=== PATIENT | male | born 1990 ===

== ENCOUNTER 2021-07-18 19:58 | Inpatient (IN) | payer MEDICAID, OTHER ==
[2021-07-18] MEDS ORDERED: MAGNESIUM HYDROXIDE 2,400 MG/10 ML CUP PO PRN (23:22)
[2021-07-18] MEDS ORDERED: LORazepam 1 MG TAB PO PRN ×3 (23:22→23:23)
[2021-07-18] MEDS ORDERED: HALOPERIDOL LACTATE 5 MG/ML 1 ML VIAL IM PRN (23:22)
[2021-07-18] MEDS ORDERED: ACETAMINOPHEN TAB 325 MG TAB PO PRN (23:22)
[2021-07-18] MEDS ORDERED: MAG HYDROX/AL HYDROX/SIMETH 30 ML CUP PO PRN (23:22)
[2021-07-18] MEDS ORDERED: haloperidoL 5 MG TAB PO PRN (23:23)
[2021-07-18] MEDS ORDERED: LORazepam 2 MG/ML INJ IM PRN (23:23)
[2021-07-19] MEDS: CEPHALEXIN 500 MG CAP PO SCH ×4 (08:53→21:11)
[2021-07-19] MEDS: NICOTINE 14MG/24HR PATCH TRANSDERM SCH (08:53)
[2021-07-19 10:48] LABS: Chol/HDL Ratio 9.66 Ratio; LDL Cholesterol,Calculated 162.8 mg/dL (0.0-131.0)
--- NOTE | 2021-07-19 13:32 | P.HP ---
Psychiatric H&P - . H&P Date: 07/19/21 History & Physical: IDENTIFYING DATA: He is a 30-year-old single male transferred from [facility] under involuntary status. HISTORY OF PRESENT ILLNESS: He presented to [facility] on 07/11/2021 after he cut his left wrist with a knife. He was intoxicated with blonde alcohol level 0.266. The laceration on his wrist required sutures but the cut did not damage underlying structures. He was uncooperative with the interview. When I asked him the circumstances that led to cutting he replied "I made a bad decision." He perseverated on being discharged and alleging that he has been away from work for over a week and may have lost his job; "what do I have to do to get out of this place." In response to questions about the circumstances that led to the cutting of his wrist he replied that he does not know or could not remember. In response to specific questions about mood, anxiety or thinking he replied that he "does not know." The medical records from [facility] provided little more information because he was similarly uncooperative with their social work assessment. PAST PSYCHIATRIC HISTORY: He denied prior psychiatric hospitalizations. He met with a psychiatrist "a couple times several years ago" but did not benefit from the experience. He did not give a clear answer to questions about other mental health services. PAST MEDICAL HISTORY: He denied a history of major medical problems. ALLERGIES: NO KNOWN DRUG ALLERGIES SUBSTANCE USE HISTORY: He was vague about his substance use history. He alleged that he drinks "every couple days" but does not perceive his alcohol use as a problem. He denied any friends or family complained to him about his alcohol use. According to record he drinks 1/2-3/4 of a fifth of liquor 3-5 days per week. Appendectomy denied participation in a subsidized abuse treatment program FAMILY PSYCHIATRIC/SUBSTANCE USE HISTORY: "I don't know." LEGAL HISTORY: He denied a history of legal problems. SOCIAL HISTORY: He was not forthcoming about his social history except that he lives alone in an apartment and works as a cook at a local restaurant. According to the social work assessment he has an estranged relationship with his mother. His father is . He is an only child. He graduated from high school. He is single and has no children. MENTAL STATUS EXAM: Appendectomy presented as a tall casually groomed 30-year-old male with male pattern balding. He had a splint with bandages on his left wrist. He made eye contact and appeared to attend to the interview. He had no distinguishing features or prominent physical abnormalities. He had an angry facial expression. He was alert and oriented to person, place and time. He showed no abnormality of psychomotor activity. His speech was not spontaneous but it was consistent with his mood. His affect was irritable and impatient. He would not answer questions about suicidal ideation or wishes. Similarly he would not answer questions about homicidal ideation, feelings of hopelessness, helplessness or worthlessness. He did not express ideas reference, paranoid ideation or delusions. His thinking was concrete but his associations were coherent, logical and goal directed. He did not appear to be responding to internal stimuli. Global impression of intellect is average. He has limited awareness of his illness or need for treatment. STRENGTHS: Stable housing, stable employment, good physical health WEAKNESSES: Alcohol use, apparently limited social support IMPRESSION: He is a 30-year-old single male transferred from [facility] under involuntary status. He presented to the hospital with a knife laceration to his left wrist that was presumably from a suicide attempt while he was intoxicated. He was uncooperative, surly and inpatient throughout this assessment. He was not forthcoming about his personal life and volunteers little information. PRINCIPLE DIAGNOSIS: Suicide attempt by laceration of the wrist, alcohol use disorder unspecified, rule out alcohol induced mood disorder, rule out major depressive disorder RECOMMENDATION: Admitted to the psychiatric. Completed the second clinical certificate and submit the Petition and supporting documents to probate Court for involuntary hospitalization. Safety precautions. Consult medicine for initial physical exam and medical history. viscose cellar worker completed initial psychosocial assessment according to discharge and aftercare. CIWA with Ativan for alcohol withdrawal. Haldol 5 mg by mouth and/or IM for agitation or aggression. Encourage participation in therapeutic groups and activities. Evaluate clinical status response to treatment daily basis. Allergies Allergy/AdvReac Type Severity Reaction Status Date / Time No Known Allergies Allergy Verified 07/18/21 23:21 Vital Signs Temp 97.1 F L 07/19/21 03:51 Pulse 81 07/19/21 03:51 Resp 20 07/19/21 03:51 BP 158/96 07/19/21 03:51 Pulse Ox FiO2 Intake & Output 07/18/21 07/19/21 07/19/21 18:59 06:59 18:59 Weight 125.191 kg Laboratory Last Values Estimated Ave Glu mg/dL 102 07/19/21 07:09 Hemoglobin A1c 5.2 % (0.0-6.0) 07/19/21 07:09 Triglycerides 217.00 mg/dL (0.00-149.00) H 07/19/21 07:09 Cholesterol 230.00 mg/dL (0.00-200.00) H 07/19/21 07:09 LDL Cholesterol, Calc 162.8 mg/dL (0.0-131.0) H 07/19/21 07:09 VLDL Cholesterol, Calc 43.40 mg/dL (5.00-40.00) H 07/19/21 07:09 HDL Cholesterol 23.80 mg/dL (40.00-60.00) L 07/19/21 07:09 Cholesterol/HDL Ratio 9.66 Ratio 07/19/21 07:09 TSH 1.830 mIU/L (0.465-4.680) 07/19/21 07:09 07/19/21 11:40 07/19/21 13:22
--- NOTE | 2021-07-20 01:45 | P.CONS ---
History of Present Illness - Reason for Consult Consult date: 07/19/21 - History of Present Illness Patient is a 30-year-old male with no known PMH who was transferred to [place] psychiatry unit for Felicia Lerma where he had been admitted for self- harm. The patient reports that he cut his left forearm and wrist for no specific reason. The patient refused to elaborate in any social situations that may have caused him to do this. He denied any active complaints at the time of interview. Denied extremity chest discomfort, shortness of breath, fever, chills, cough, nausea, vomiting, abdominal pain, diarrhea. Reports smoking 1 pack of cigarettes daily. Denied reports social alcohol use 1 to 2 times a week, 3-4 drinks each time. Denied substance use. Review of systems: Pertinent positives and negatives as discussed in HPI, a complete review of systems was performed and all other systems are negative. Physical examination: General: non toxic, no distress, appears at stated age, obese Derm: Left forearm large laceration from wrist to mid forearm with sutures intact, clean and dry, no unusual ecchymoses, warm, dry Head: atraumatic, normocephalic, symmetric Eyes: EOMI, no lid lag, anicteric sclera, pupils equal round reactive to light ENT: Nose and ears atraumatic, no thrush, no pharyngeal erythema Neck: No thyromegaly, no cervical lymphadenopathy, trachea midline, supple Mouth: no lip lesion, mucus membranes moist Cardiovascular: S1S2 reg, no murmur, positive posterior tibial pulse bilateral, no edema, capillary refill less than 2 seconds Lungs: CTA bilateral, no rhonchi, no rales , no accessory muscle use Abdominal: soft, nontender to palpation, no guarding, no appreciable organomegaly, normal bowel sounds Ext: no gross muscle atrophy, muscle strength 5 out of 5 in all 4 extremities grossly, no contractures, Neuro: CN II-XI grossly intact, light touch intact all 4 extremities, finger to nose within normal limits, Psych: Alert, oriented, appropriate affect Assessment/plan Left forearm laceration -Wound care Tobacco abuse -Advised on importance of cessation Self-harm -As per psychiatry Thank you for allowing us to participate in the care of this patient. We will follow peripherally. Do not hesitate to contact us with questions. Someone can be reached from the [facility] [place] hospitalist group at all hours of the day at [phone]. Past Medical History Past Medical History: No Reported History History of Any Multi-Drug Resistant Organisms: None Reported Additional Past Surgical History / Comment(s): Left arm was repaired by ortho at [facility]. Past Anesthesia/Blood Transfusion Reactions: No Reported Reaction Past Psychological History: No Psychological Hx Reported Smoking Status: Current every day smoker Past Alcohol Use History: None Reported Past Drug Use History: None Reported - Past Family History Mother Family Medical History: Hyperlipidemia Medications and Allergies Allergies Allergy/AdvReac Type Severity Reaction Status Date / Time No Known Allergies Allergy Verified 07/18/21 23:21 Physical Exam Vitals: Vital Signs Temp Pulse Resp BP 07/19/21 03:51 97.1 F L 81 20 158/96 Results Labs: Abnormal Lab Results - Last 24 Hours (Table) 07/19/21 Range/Units 07:09 Triglycerides 217.00 H (0.00-149.00) mg/dL Cholesterol 230.00 H (0.00-200.00) mg/dL LDL Cholesterol, Calc 162.8 H (0.0-131.0) mg/dL VLDL Cholesterol, Calc 43.40 H (5.00-40.00) mg/dL HDL Cholesterol 23.80 L (40.00-60.00) mg/dL
[2021-07-20 06:58] VITALS: RESP 16
[2021-07-20] MEDS: NICOTINE 14MG/24HR PATCH TRANSDERM SCH (08:45)
[2021-07-20] MEDS: CEPHALEXIN 500 MG CAP PO SCH ×4 (08:45→23:31)
[2021-07-20] MEDS ORDERED: CALCIUM CARBONATE 500 MG CHEWABLE PO PRN (11:22)
--- NOTE | 2021-07-20 14:09 | P.PN ---
Progress Note - Text Progress Note Date: 07/20/21 Clinical Problems: Suicide attempt by laceration of the wrist, alcohol use disorder unspecified, rule out alcohol induced mood disorder, rule out major depressive disorder, rule out dysthymic disorder, rule out bipolar disorder Interim history: I reviewed the medical record, interviewed the patient and discussed the treatment and treatment plan with the treatment team. He was angry that I proceeded with involuntary hospitalization. Apparently since he cut his forearm he has been in a hospital for over a week. He complains that if he were to remain in the hospital much longer he would have difficulty meeting his financial obligations. I attempted to get a better understanding of the reasons he cut his forearm in a suicide attempt. He was more forthcoming than yesterday but still maintained that he could not explain his behavior. He would not talk about his thoughts or feelings prior to the incident. On the day of the incident he is spend much of the evening with a neighbor watching television. They ordered a pizza and he took half a piece of back to his apartment. He watched television "for a while" and then went to his bedroom. He sat on the edge the bed for an unspecified period time. He got up and walked in the kitchen picked up the automatic machine attendant knife and returned to the bedroom. He made approximately 18 cm laceration longitudinally along his left forearm. He then set down the knife, pinched the laceration with his fingers to stem the bleeding and called the police. He presented the incident as a spontaneous and thoughtless action that he regrets. He stated that he was having a "bad day" but would not admit to feeling depressed, hopeless or helpless. He talked about having periods lasting 1-2 days where he gets depressed and isolates himself to his apartment. He estimates that these episodes occur at most once a month. He is had past episodes lasting for at least 1 week. He denied periods of elevated mood or sustained irritability suggestive of a major or hypomania. He denied experiencing symptoms suggestive psychosis such as hallucinations paranoia or confusion. Medical consult appreciated. Mental status exam: He presented as guarded tall 30-year-old male with male pattern baldness. He made eye contact and attended to the interview. He had an 18 cm laceration along his left forearm with closed with multiple sutures. The laceration was clean and dry. He had no physical abnormalities. He had a bright facial expression. He was alert and oriented to person, place and time. He showed no abnormality of psychomotor activity. His speech was spontaneous with normal rate, rhythm and volume. His affect was somewhat irri table but not intense and appropriate. He denied suicidal ideation or wishes. He denied homicidal ideation. He denied experiencing feelings of hopelessness, helplessness or worthlessness. He did not express obsessions, ruminations, ideas reference, paranoid ideation or delusions. His thinking was concrete but his associations were coherent, logical and goal directed. He denies hallucinations did not appear to be responding to internal stimuli. Assessment: He is more cooperative than on admission but is denying symptoms of depression and does not appear depressed, hopeless or helpless. The suicide attempt appears to been an impulsive action while he was intoxicated. I'm unable to identify clear symptom patterns consistent with a major depressive disorder. He has intermittent periods of depression and accompanied by signs and symptoms of elin or hypomania. Plan: Continue inpatient treatment. Safety precautions. Discharge after deferral hearing. Evaluate the need for an antidepressant. Encouraged continued participation in therapeutic groups and activities. Evaluate clinical status response to treatment daily basis.
[2021-07-21] MEDS: NICOTINE 14MG/24HR PATCH TRANSDERM SCH (08:43)
[2021-07-21] MEDS: CEPHALEXIN 500 MG CAP PO SCH ×3 (08:44→21:31)
[2021-07-21] MEDS ORDERED: CEPHALEXIN 500 MG CAP ONE (13:00)
--- NOTE | 2021-07-21 14:53 | P.PN ---
Progress Note - Text Progress Note Date: 07/21/21 Interval History: Patient was seen lying in his bed today and was agreeable to speak to policy writer typist. Patient claims that he is having some anxiety and depression however for the most part feels a bit better. He claims that his wound on his left forearm is healing better and was asking about the stitches. He states that he has been sleeping a bit better lately however has trouble regulating his sleep. He claims that he has been going to some groups. He was minimizing the alcohol abuse/intoxication and also the suicide attempt. He states that he was not trying to kill himself" don't know what happened". He states he has fair appetite. He was agreeable to start Zoloft today. At this time patient denies any suicidal or homical ideations, intent or plan. Patient denies any auditory, visual hallucinations and denies any paranoia or delusions. Patient denies any side effects from the medications and has been compliant with meds. Mental Status Exam: General Appearance: [Patient appears to be tall, overweight, stated age is alert, directable, and guarded at times.] Behavior: [Patient is calmly seated without any agitated behavior.] Guarded at times. Speech: Patient's speech is fluent and nonpressured. [place] Mood/Affect: Mood is depressed and anxious however is improving mildly, affect is congruent and constricted. Suicidality/Homicidality: Patient denies having any suicidal or homicidal ideation intent or plan. Perceptions: Patient denies any visual hallucinations [and denies any auditory hallucinations] Though content/process: [There is no evidence of any delusional thought content and thought process is linear and goal-directed.] If they get times. Memory and concentration: AOX3, grossly intact for the purposes of this session Judgment and insight: Poor, Improving mildly Assessment Depressive disorder unspecified, rule out adjustment disorder versus major depressive disorder Alcohol use disorder severe Nicotine dependence Plan: -Patient continues to meet criteria for inpatient psychiatric admission for symptom stabilization and safety. Patient has [not] signed [adult voluntary form and] [medication consent] and was placed in patient's chart. -Medications: Zoloft 50 mg daily for mood/anxiety. melatonin 6 mg qhs for insomnia -When necessary Ativan and Haldol for agitation/aggression. d/c ciwa as patients last drink was over 12 days ago. -NRT - [nicotine patch] -COLLEEN on board for discharge planning. Encouraged the patient to participate in milieu. Currently awaiting deferral with attorney at law and court date. patient claims he does not want to go to rehab. currently awaiting deferral and couirt date.
[2021-07-21] MEDS: SERTRALINE 50 MG TAB PO SCH (17:17)
[2021-07-22] MEDS: CEPHALEXIN 500 MG CAP PO SCH ×5 (07:51→21:31)
[2021-07-22] MEDS ORDERED: MELATONIN 3 MG TABLET PO SCH (09:00)
[2021-07-22] MEDS: SERTRALINE 50 MG TAB PO SCH (09:22)
[2021-07-22] MEDS: NICOTINE 14MG/24HR PATCH TRANSDERM SCH (09:22)
--- NOTE | 2021-07-22 09:28 | P.PN ---
Progress Note - Text Progress Note Date: 07/22/21 Interval History: Patient was seen lying in his bed today and was agreeable to speak to insurance writer. She claims that he is doing better today overall. He states that he took the medication yesterday and today and claims that he didn't feel little bit drowsy harbors feeling better today. He states that his appetite has been improving. He continues to be fairly concrete and minimizing his alcohol use and the situation. He continues to be fairly focused on discharge. We spoke about the court process and waiting for the city attorney. He continues to minimize the suicide attempt. He is agreeable to continue on with treatment. He states that he slept better last night. At this time patient denies any suicidal or homical ideations, intent or plan. Patient denies any auditory, visual hallucinations and denies any paranoia or delusions. Patient denies any side effects from the medications and has been compliant with meds. Mental Status Exam: General Appearance: Patient appears to be tall, overweight, stated age is alert, directable, and guarded at times. Behavior: Patient is calmly seated without any agitated behavior. More cooperative today. Superficial. Speech: Patient's speech is fluent and nonpressured. Mood/Affect: Mood is depressed and anxious however is improving mildly, affect is congruent and constricted. Suicidality/Homicidality: Patient denies having any suicidal or homicidal ideation intent or plan. Perceptions: Patient denies any visual hallucinations and denies any auditory hallucinations Though content/process: There is no evidence of any delusional thought content and thought process is linear and goal-directed. Memory and concentration: AOX3, grossly intact for the purposes of this session Judgment and insight: Poor/superficial, Improving mildly Assessment Depressive disorder unspecified, rule out adjustment disorder versus major depressive disorder Alcohol use disorder severe Nicotine dependence Plan: -Patient continues to meet criteria for inpatient psychiatric admission for symptom stabilization and safety. Patient has not signed adult voluntary form and medication consent and was placed in patient's chart. -Medications: Zoloft 50 mg daily for mood/anxiety. melatonin 6 mg qhs for insomnia -When necessary Ativan and Haldol for agitation/aggression. d/c ciwa as patients last drink was over 12 days ago. -NRT - nicotine patch -SW on board for discharge planning. Encouraged the patient to participate in milieu. deferral set for 07/26 with city attorney. patient claims he does not want to go to rehab. likely discharge after he signs deferral next week.
[2021-07-22] MEDS: MELATONIN 3 MG TABLET PO SCH (21:32)
[2021-07-23] MEDS: NICOTINE 14MG/24HR PATCH TRANSDERM SCH (08:54)
[2021-07-23] MEDS: SERTRALINE 50 MG TAB PO SCH (08:54)
[2021-07-23] MEDS: CEPHALEXIN 500 MG CAP PO SCH ×4 (08:54→21:33)
--- NOTE | 2021-07-23 16:27 | P.PN ---
Progress Note - Text Progress Note Date: 07/23/21 Interval history: Patient was in his room reading and was directable and agreeable to speak with writer technical publications. At this time patient denies any suicidal or homicidal ideations intent or plan. He denies depressed mood but appears irritable and dissatisfied. He is interested in discharge and hopes to discharge on Sunday. Denies any auditory or visual hallucinations. Patient denies any side effects from the medications and has been compliant with meds. Mental status exam: General Appearance: Patient appears to be stated age, has a paniagua. Behavior: No agitated behavior. Patient is calm and directable, cooperative. Speech: Patient's speech is fluent and nonpressured. Mood/Affect: Mood is improving mildly, affect is congruent and constricted. Suicidality/Homicidality: Patient denies having any suicidal or homicidal ideation intent or plan. Perceptions: Patient denies any auditory or visual hallucinations. Though content/process: There is no evidence of any delusional thought content and thought process is linear and goal-directed. Memory and concentration: Alert and oriented to person, place, time and situation. Grossly intact for the purposes of this session Judgment and insight: improving mildly Assessment/Plan: Continue with current diagnosis. Patient continues to meet criteria for inpatient psychiatric admission for symptom stabilization and safety. Patient will be maintained on current psychotropic medication regimen, except for increase Zoloft to 100 mg daily starting tomorrow morning for depression. Monitor for medication compliance and for any psychotropic medication side effects. Will continue to monitor ongoing response to treatment. Encouraged participation in milieu.
[2021-07-23] MEDS: MELATONIN 3 MG TABLET PO SCH (21:32)
[2021-07-24] MEDS: CEPHALEXIN 500 MG CAP PO SCH ×4 (08:10→21:56)
[2021-07-24] MEDS: NICOTINE 14MG/24HR PATCH TRANSDERM SCH (08:10)
[2021-07-24] MEDS ORDERED: SERTRALINE 100 MG TAB PO SCH (09:00)
--- NOTE | 2021-07-24 18:12 | P.PN ---
Progress Note - Text Progress Note Date: 07/24/21 Interval history: Patient was agreeable to speak with adjusto writer operator. He reports feeling a little again earlier today. At this time patient denies any suicidal or homicidal ideations intent or plan. He denies depressed mood and appears euthymic. He denies any auditory or visual hallucinations. Patient denies any other side effects from the medications and has been compliant with meds. Mental status exam: General Appearance: Patient appears to be stated age, has a paniagua. Behavior: No agitated behavior. Patient is calm and directable, cooperative. Speech: Patient's speech is fluent and nonpressured. Mood/Affect: Mood is improving mildly, affect is congruent and constricted. Suicidality/Homicidality: Patient denies having any suicidal or homicidal ideation intent or plan. Perceptions: Patient denies any auditory or visual hallucinations. Though content/process: There is no evidence of any delusional thought content and thought process is linear and goal-directed. Memory and concentration: Alert and oriented to person, place, time and situation. Grossly intact for the purposes of this session Judgment and insight: improving mildly Assessment/Plan: Continue with current diagnosis. Patient continues to meet criteria for inpatient psychiatric admission for symptom stabilization and safety. Patient will be maintained on current psychotropic medication regimen, except will change Zoloft to 100 mg QHS starting tomorrow night due to reports of feeling tired during the days. Monitor for medication compliance and for any psychotropic medication side effects. Will continue to monitor ongoing response to treatment. Encouraged participation in milieu.
[2021-07-24] MEDS: MELATONIN 3 MG TABLET PO SCH (21:56)
[2021-07-25 07:01] VITALS: BP 109/56; PULSE 57; TEMP 99
[2021-07-25] MEDS: CEPHALEXIN 500 MG CAP PO SCH ×4 (09:19→21:09)
[2021-07-25] MEDS: NICOTINE 14MG/24HR PATCH TRANSDERM SCH (09:19)
--- NOTE | 2021-07-25 11:24 | P.PN ---
Progress Note - Text Progress Note Date: 07/25/21 Interval History: Patient was seen lying in his bed today and was reading a book and was agreeable to speak to designer/writer. Patient continues to state that he is doing better today. He claims that his mood has been improving. He states that he was started on 100 mg of Zoloft which was switched to nighttime as he was feeling tired during the day. He claims that he is doing much better today in terms of his energy level. He states that he is sleeping throughout the night. He appear to be more future oriented however still has minimal insight into his reason for hospitalization. He states that the wound on his arm is gradually healing. He was focused on discharge. He is agreeable to continue on with treatment. He states that he slept better last night. At this time patient denies any suicidal or homical ideations, intent or plan. Patient denies any auditory, visual hallucinations and denies any paranoia or delusions. Patient denies any side effects from the medications and has been compliant with meds. Mental Status Exam: General Appearance: Patient appears to be tall, overweight, stated age is alert, directable, and more cooperative today. Behavior: Patient is calmly seated without any agitated behavior. More cooperative today. Speech: Patient's speech is fluent and nonpressured. Mood/Affect: Mood is depressed and anxious however is improving mildly, affect is congruent and constricted. Suicidality/Homicidality: Patient denies having any suicidal or homicidal ideation intent or plan. Perceptions: Patient denies any visual hallucinations and denies any auditory hallucinations Though content/process: There is no evidence of any delusional thought content and thought process is linear and goal-directed. Memory and concentration: AOX3, grossly intact for the purposes of this session Judgment and insight: superficial, Improving mildly Assessment Depressive disorder unspecified, rule out adjustment disorder versus major depressive disorder Alcohol use disorder severe Nicotine dependence Plan: -Patient continues to meet criteria for inpatient psychiatric admission for symptom stabilization and safety. Patient has not signed adult voluntary form and medication consent and was placed in patient's chart. -Medications: Continue with Zoloft 100 mg daily at bedtime for mood/anxiety. melatonin qhs for insomnia -When necessary Ativan and Haldol for agitation/aggression. -NRT - nicotine patch -SW on board for discharge planning. Encouraged the patient to participate in milieu. deferral set for 07/26 with alum plant operator. patient claims he does not want to go to rehab. likely discharge tomorrow back home after deferral with alum plant operator.
[2021-07-25] MEDS ORDERED: SERTRALINE 100 MG TAB PO SCH (21:00)
[2021-07-25] MEDS: MELATONIN 3 MG TABLET PO SCH (21:08)
[2021-07-26] MEDS: CEPHALEXIN 500 MG CAP PO SCH (09:00)
--- NOTE | 2021-07-26 11:21 | P.DS ---
Providers Date of admission: 07/19/21 03:20 Expected date of discharge: 07/26/21 Attending physician: Alessandro Turk MD Consults: 07/18/21 23:22 Consult Physician Routine Consulting Provider: Toni Ji Consult Reason/Comments: H&P and medical Do you want consulting provider notified?: Yes Primary care physician: Stated None - Discharge Diagnosis(es) (1) Depression, unspecified Current Visit: Yes Status: Acute Priority: High (2) Alcohol use disorder, severe, dependence Current Visit: Yes Status: Acute Priority: Medium (3) Nicotine dependence Current Visit: Yes Status: Acute Priority: Low Hospital Course: Admission HPI: Admission note was completed by Dr Turk "He is a 30-year-old single male transferred from [facility] under involuntary status. He presented to [facility] on 07/11/2021 after he cut his left wrist with a knife. He was intoxicated with blonde alcohol level 0.266. The laceration on his wrist required sutures but the cut did not damage underlying structures. He was uncooperative with the interview. When I asked him the circumstances that led to cutting he replied "I made a bad decision." He perseverated on being discharged and alleging that he has been away from work for over a week and may have lost his job; "what do I have to do to get out of this place." In response to questions about the circumstances that led to the cutting of his wrist he replied that he does not know or could not remember. In response to specific questions about mood, anxiety or thinking he replied that he "does not know." The medical records from [facility] provided little more information because he was similarly uncooperative with their social work assessment." Hospital course: Upon admission to the unit patient was admitted involuntarily on a petition and certificate and a second certificate was completed and faxed with the courts. Patient ended up signing a deferral with the lens grinder and agreeing to treatment. Patient got along well with other patients on the unit and followed unit protocol. Patient was compliant with the medications and denied any side effects throughout hospital course. Patient was started on Zoloft and titrated up to dose of 100 mg daily at bedtime for mood/anxiety, no tone and daily at bedtime for insomnia. Patient spoke of his stressors and engaged in therapy both group and individual. Patient was also seen by medical team for history and physical exam. Throughout the course of the hospitalization patient gradually improved with regards to mood, anxiety, sleep and returned back to their baseline level of functioning. On the day of discharge patient denied any suicidal or homicidal ideations intent or plan denied any auditory or visual hallucinations. Patient endorsed wanting to live for his health and future. The patient denied any access to guns or weapons. Patient denied any paranoia and did not endorse any delusions. Patient does have a significant history of substance abuse and was counseled on abstaining from all substances including alcohol and marijuana. Patient was offered however declined inpatient substance- abuse rehab. Patient was also counseled on the medications and need for regular compliance and was encouraged to follow-up with their outpatient appointment for mental health and also for primary care. Prior to discharge a family meeting will be arranged by outreach and education social worker to answer any questions and ensure safety upon discharge. Mental status exam: General Appearance: Patient appears to be overweight, wearing glasses, stated age is alert, pleasant, and cooperative. Patient is in no acute distress and has improved hygiene and grooming Behavior: Patient is calmly seated without any agitated behavior. Speech: Patient's speech is fluent and nonpressured. Mood/Affect: Patient reports their mood is "better", affect is congruent and euthymic. Suicidality/Homicidality: Patient denies having any suicidal or homicidal ideation intent or plan. Perceptions: Patient denies any auditory or visual hallucinations. Though content/process: There is no evidence of any delusional thought content and thought process is linear and goal-directed. more future oriented Memory and concentration: AOX3, grossly intact for the purposes of this session. Can spell "WORLD" backwards correctly. Judgment and insight: improved with guarded prognosis Impression: Depressive disorder unspecified Alcohol use disorder, severe dependence Nicotine dependence Plan: -Continue with discharge today as patient has improved and stabilized psychiatrically and is not currently an imminent threat to himself and/or others. Patient will remain at chronically elevated risk for harm to self and/or others due to his impulsivity and substance abuse. -Continue medications: Melatonin 6 mg daily at bedtime for insomnia, Zoloft 100 mg daily at bedtime for mood/anxiety. [employer] Worker Helper offered patient be started on alcohol cravings medications however patient declined at this time. -Patient was counseled on the need for medication compliance and appropriate follow-up at mental health and also primary care for medical issues. Patient verbalized understanding and agreed. -Social work to arrange for and conduct family meeting to ensure safety upon dis charge and answer any questions/concerns. Social work also to arrange for patients follow up appointments for psychiatric care along with follow up with primary care provider. -Patient counseled on abstaining from recreational drugs and marijuana and alcohol. Was informed/educated on the adverse effects on their physical and mental health. Patient verbally agreed and understood. Patient was offered substance abuse treatment however declined at this time. -Patient was instructed to return to the hospital or seek immediate medical care if their psychiatric or medical symptoms do worsen or reoccur. Allergies Allergy/AdvReac Type Severity Reaction Status Date / Time No Known Allergies Allergy Verified 07/18/21 23:[address] Glu mg/dL 102 07/19/21 07:09 Hemoglobin A1c 5.2 % (0.0-6.0) 07/19/21 07:09 Triglycerides 217.00 mg/dL (0.00-149.00) H 07/19/21 07:09 Cholesterol 230.00 mg/dL (0.00-200.00) H 07/19/21 07:09 LDL Cholesterol, Calc 162.8 mg/dL (0.0-131.0) H 07/19/21 07:09 VLDL Cholesterol, Calc 43.40 mg/dL (5.00-40.00) H 07/19/21 07:09 HDL Cholesterol 23.80 mg/dL (40.00-60.00) L 07/19/21 07:09 Cholesterol/HDL Ratio 9.66 Ratio 07/19/21 07:09 TSH 1.830 mIU/L (0.465-4.680) 07/19/21 07:09 Vital Signs Temp 99 F 07/25/21 07:00 Pulse 57 L 07/25/21 07:00 Resp 16 07/24/21 08:11 BP 109/56 07/25/21 07:00 Pulse Ox 97 07/25/21 07:00 FiO2 Patient Condition at Discharge: Stable Plan - Discharge Summary Discharge Rx Participant: No New Discharge Prescriptions: New Sertraline [Zoloft] 100 mg PO HS 30 Days tab Melatonin 6 mg PO HS 30 Days tab Calcium Carbonate [Tums] 1,000 mg PO TID PRN tab PRN Reason: Heartburn Discharge Medication List Calcium Carbonate [Tums] 1,000 mg PO TID PRN tab 07/26/21 [Rx] Melatonin 6 mg PO HS 30 Days tab 07/26/21 [Rx] Sertraline [Zoloft] 100 mg PO HS 30 Days tab 07/26/21 [Rx] Follow up Appointment(s)/Referral(s): [facility], [facility] [Other] - 08/09/21 10:00 am (08/09 @ 10am- Intake with [facility] ([facility]) w/ Jeramy Reyez via Telehealth) Patient Instructions/Handouts: Depression (DC) Activity/Diet/Wound Care/Special Instructions: Activity and diet as tolerated. Avoid the use of street drugs and alcohol. Take all medications as prescribed. When you are in need of refills on your medications please contact your medical provider and/or outpatient psychiatrist to have this done. Please go to scheduled outpatient appointment for aftercare treatment. If symptoms return or become worse, call the crisis line at and/or go to the nearest emergency room for evaluation Discharge Disposition: HOME SELF-CARE
== END 2021-07-26 11:52 | disposition home or self-care (01) | DRG 881 ==
LOC: 3MHU 07-19 03:20
PROVIDERS: ADMIT Psychiatry & Neurology Psychiatry; ATTEND Psychiatry & Neurology Psychiatry
DX: F32.A Depression, unspecified (principal); R45.851 Suicidal ideations; F10.20 Alcohol dependence, uncomplicated; S61.512S Laceration without foreign body of left wrist, sequela; S51.812S Laceration without foreign body of left forearm, sequela; F17.210 Nicotine dependence, cigarettes, uncomplicated; F41.9 Anxiety disorder, unspecified; G47.00 Insomnia, unspecified
CPT/HCPCS: 80061; 83036; 84443